=== PATIENT | male | born 1995 | race Caucasian/White ===

== ENCOUNTER 2024-05-12 18:21 | Emergency (ER) | payer OTHER, SELFPAY ==
[2024-05-12 18:25] VITALS: BP 169/88; PULSE 78; TEMP 36.7; O2SAT 98; BMI 35.0
--- NOTE | 2024-05-12 18:28 | ED_ITS ---
HPI - Eye Problem General Chief complaint: Eye Problems Stated complaint: Visual Disturbance Time Seen by Provider: 05/12/24 18:25 Source: patient Mode of arrival: walk-in Limitations: no limitations History of Present Illness HPI Narrative: Patient is a 28-year-old male who presents to the emergency department for the evaluation of irritation to the bilateral eyes for the last week. He states his right eye is significantly worse than the left eye. He has clear tearing. He has a foreign body sensation. 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 He states when his symptoms began, he bought eyedrops [id number] and has been rinsing his eyes although he continues to have the sensation of foreign body. No other medications taken prior to arrival. He does not wear contact lenses. He has had no facial swelling, visual loss. Related Data Home Medications ?Medication ?Instructions ?Recorded ?Confirmed losartan 50 mg tablet 50 mg PO DAILY 05/12/24 05/12/24 sertraline 50 mg tablet mg 05/12/24 Previous Rx's ?Medication ?Instructions ?Recorded diclofenac sodium 0.1 % eye drops 2 drp ophthalmic (eye) Q6H PRN eye 05/12/24 pain 2 days #2.5 mL ketorolac 10 mg tablet 10 mg PO TID PRN pain #10 tabs 05/12/24 Allergies Allergy/AdvReac Type Severity Reaction Status Date / Time No Known Drug Allergies Allergy Verified 05/12/24 18:31 Review of Systems ROS Constitutional Denies: fever or chills Eyes Reports: eye discomfort and increased production of tears Ears, nose, mouth, and throat Denies: throat pain or nasal congestion Respiratory Denies: shortness of breath Gastrointestinal Denies: nausea or vomiting Integumentary/Breast Denies: rash Neurological Denies: headache, numbness in extremities or weakness in extremities Hematologic/Lymphatic Denies: easy bruising or easy bleeding Exam Narrative Exam Narrative: Gen.: Awake, alert, in no distress Head: Normocephalic, atraumatic ENT: Moist mucous membranes Eye: Normal extraocular motion, pupils were equal round and reactive to light, the patient had no pain with extraocular motion. The patient had no involvement over the pupil. There was evidence of conjunctival injection. The patient's eyelid was everted and there was no evidence of foreign body. The patient had no swelling of the upper/lower eyelid. No evidence of hyphema, dendritic lesion or Ebony sign. No corneal ulcerations or hypopyn. No evidence of preseptal cellulitis or orbital cellulitis. Respiratory: No respiratory distress Extremities: Moves extremities equally Psych: Normal mood and affect Neuro: No focal neuro deficit Skin: Warm, dry, intact Constitutional Vital Signs, click to edit/add: Last Vital Signs Temp 98.0 F 05/12/24 18:25 Pulse 78 05/12/24 18:25 Resp 18 05/12/24 18:25 BP 169/88 05/12/24 18:25 Pulse Ox 98 05/12/24 18:25 O2 Del Method Room Air 05/12/24 18:25 Course Vital Signs Vital signs: Vital Signs Temperature 98.0 F 05/12/24 18:25 Pulse Rate 78 05/12/24 18:25 Respiratory Rate 18 05/12/24 18:25 Blood Pressure 169/88 05/12/24 18:25 Pulse Oximetry 98 05/12/24 18:25 Oxygen Delivery Method Room Air 05/12/24 18:25 Temperature 98.0 F 05/12/24 18:25 Pulse Rate 78 05/12/24 18:25 Respiratory Rate 18 05/12/24 18:25 Blood Pressure 169/88 05/12/24 18:25 Pulse Oximetry 98 05/12/24 18:25 Oxygen Delivery Method Room Air 05/12/24 18:25 MDM - Eye Problem MDM Narrative Medical decision making narrative: Bilateral eyes were anesthetized with tetracaine, stained with fluorescein. Diffuse irritation noted bilaterally, punctate corneal abrasion noted to the left eye. Right upper eyelid was everted, no evidence of foreign body, rust ring or large corneal abrasion noted. Patient placed on tobramycin, Voltaren drops for home. Follow-up with PCP. He was given information for optometry referral as well. Return to the ER if symptoms change or worsen. SUPERVISED APC VISIT, PHYSICIAN ATTESTATION: Based on the medical record the care appears appropriate. ? Medical Records Attestation: I reviewed the patient's medical records. Discharge Plan Discharge Stand Alone Forms: Portal Instructions Chief Complaint: Eye Problems Clinical Impression: Acute eye pain Patient Disposition: Home, Self-Care Time of Disposition Decision: 18:56 Condition: Good Prescriptions / Home Meds: New ketorolac 10 mg tablet 10 mg PO TID PRN (Reason: pain) Qty: 10 0RF diclofenac sodium 0.1 % drops 2 drp ophthalmic (eye) Q6H PRN (Reason: eye pain) 2 Days Qty: 2.5 0RF No Action sertraline 50 mg tablet losartan 50 mg tablet 50 mg PO DAILY Print Language: Swedish Instructions: Eye Pain (ED) Referrals: YASMIN GRACE [Physician] - As soon as possible Physician,Non-Staff, [Physician] - 1 week
[2024-05-12] MEDS: TETRACAINE HCL 0.5% OP SOL 80 DROP/4 ML BOTTLE OP (18:47)
[2024-05-12] MEDS: TOBRAMYCIN 0.3% OP SOL 100 DROP/5 ML BOTTLE OP (18:47)
[2024-05-12] MEDS: FLUORESCEIN SODIUM 1 MG STRIP OP (18:47)
[2024-05-12 19:05] VITALS: BP 142/66; PULSE 79; O2SAT 98
== END 2024-05-12 19:09 | disposition home or self-care (01) ==
PROVIDERS: Emergency Provider Emergency Medicine; PCP Student in an Organized Health Care Education/Training Program
DX: H57.10 Ocular pain, unspecified eye (principal)
CPT/HCPCS: 99284